=== PATIENT | male | born 1955 | race Caucasian/White ===

== ENCOUNTER 2018-05-22 12:57 | Inpatient (IN) | payer OTHER ==
[~2018-05-22 12:57] MED LIST: HYDROmorphone HCL 2 MG/ML 1ML VIAL (J1170) As Ordered; LIDOCAINE 2% INJ 100 MG/5 ML SDV (FOR ANES.) As Ordered; MIDAZOLAM INJ 2 MG/2 ML VIAL (J2250) As Ordered; ONDANSETRON 4MG/2ML VIAL (J2405) As Ordered; PROPOFOL 200 MG/20 ML VIAL As Ordered; ROCURONIUM BROMIDE 50 MG/5 ML VIAL As Ordered; dexameTHASONE 4 MG/ML 1ML VIAL (J1100) As Ordered; fentaNYL 100 MCG/2 ML INJECTION (J3010) As Ordered
[2018-05-22] MEDS ORDERED: LR 1,000 ML IV (13:15)
[2018-05-22] MEDS ORDERED: PERCOCET 5MG/325MG TAB As Ordered (13:18)
[2018-05-22] MEDS: PERCOCET 5MG/325MG TAB PO ×2 (13:30→20:20)
[2018-05-22] MEDS: BUPIVACAINE/EPIN 0.25% 30 ML VIAL As Ordered (13:51)
[2018-05-22] MEDS: ceFAZolin SOD 1 GM in D5W MINI-BAG PLUS 50 ML IV (16:10)
[2018-05-22] MEDS: THROMBIN SOLN 20,000 UNITS KIT As Ordered (17:10)
[2018-05-22] MEDS: BACITRACIN PWD 50,000 UNITS VIAL As Ordered (17:10)
[2018-05-22] MEDS ORDERED: PROPOFOL 200 MG/20 ML VIAL As Ordered (17:35)
[2018-05-22] MEDS ORDERED: KETOROLAC 60 MG/2 ML VIAL (J1885) As Ordered (19:00)
[2018-05-22] MEDS ORDERED: SUGAMMADEX SODIUM 500 MG/5 ML VIAL (BRIDION) As Ordered (19:18)
[2018-05-22] MEDS: BUPIVACAINE HCL 0.5% 10 ML VIAL As Ordered (19:28)
[2018-05-22] MEDS: BUPIVACAINE LIPOSOME/PF 1.3% 20 ML VIAL (13.3MG/ML)(EXPAREL) As Ordered (19:28)
[2018-05-22] MEDS ORDERED: PERCOCET 5MG/325MG TAB PO (20:00)
[2018-05-22] MEDS ORDERED: PROMETHAZINE INJ 25 MG/ML VIAL (J2550) IV (20:15)
[2018-05-22] MEDS ORDERED: HYDROMORPHONE HCL 0.5 MG/ 0.5 ML SYRINGE (J1170 PER 1) IV (20:15)
[2018-05-22] MEDS: fentaNYL 100 MCG/2 ML INJECTION (J3010) IV ×3 (20:20→20:30)
[2018-05-22] MEDS ORDERED: fentaNYL 100 MCG/2 ML INJECTION (J3010) As Ordered (20:26)
[2018-05-22] MEDS ORDERED: ONDANSETRON 4MG/2ML VIAL (J2405) IV (20:30)
[2018-05-22] MEDS: LR 1,000 ML IV (20:30)
[2018-05-22] MEDS ORDERED: MORPHINE 10 MG/ML 1ML VIAL (J2270) IV (20:30)
[2018-05-22] MEDS: LISINOPRIL 40 MG TAB PO (21:10)
[2018-05-22] MEDS: amLODIPine 5 MG TAB PO (21:10)
[2018-05-22] MEDS: D5W/LR 1,000 ML IV (22:05)
[2018-05-22] MEDS: GABAPENTIN 300 MG CAP PO (22:06)
[2018-05-23] MEDS: PERCOCET 5MG/325MG TAB PO ×2 (03:12→20:20)
[2018-05-23] MEDS: HYDROMORPHONE HCL 0.5 MG/ 0.5 ML SYRINGE (J1170 PER 1) IV ×2 (06:31→09:01)
[2018-05-23] MEDS ORDERED: PROMETHAZINE INJ 25 MG/ML VIAL (J2550) IV (07:15)
[2018-05-23] MEDS: LISINOPRIL 40 MG TAB PO (08:59)
[2018-05-23] MEDS: METAMUCIL (PSYLLIUM) PACKET PO (09:00)
[2018-05-23] MEDS: CelecoXIB (CeleBREX) 100 MG CAP PO (09:00)
[2018-05-23] MEDS: GABAPENTIN 300 MG CAP PO ×3 (09:00→20:19)
[2018-05-24] MEDS: PERCOCET 5MG/325MG TAB PO ×3 (02:56→17:50)
[2018-05-24] MEDS: GABAPENTIN 300 MG CAP PO ×4 (08:34→20:41)
[2018-05-24] MEDS: LISINOPRIL 40 MG TAB PO (08:36)
[2018-05-24] MEDS: METAMUCIL (PSYLLIUM) PACKET PO (08:37)
[2018-05-24] MEDS ORDERED: METHOCARBAMOL 750 MG TAB PO (09:00)
[2018-05-24] MEDS: METHOCARBAMOL 750 MG TAB PO ×4 (12:00→20:41)
[2018-05-24] MEDS: CelecoXIB 400 MG CAP PO (12:09)
[2018-05-25] MEDS: PERCOCET 5MG/325MG TAB PO ×3 (05:32→14:02)
[2018-05-25] MEDS: METAMUCIL (PSYLLIUM) PACKET PO (09:00)
[2018-05-25] MEDS: LISINOPRIL 40 MG TAB PO (09:19)
[2018-05-25] MEDS: GABAPENTIN 300 MG CAP PO (09:19)
[2018-05-25] MEDS: METHOCARBAMOL 750 MG TAB PO ×2 (09:20→14:01)
== END 2018-05-25 14:12 | disposition home or self-care (01) | DRG 310 ==
LOC: M SDC 12:57 → M MS5PR 21:33
PROC: 0SB20ZZ Excision of Lumbar Vertebral Disc, Open Approach (ICD-10-PCS; principal; 2018-05-22 16:10)
DX: M51.26 Other intervertebral disc displacement, lumbar region (principal); I10 Essential (primary) hypertension